=== PATIENT | female | born 1990 | race Caucasian/White ===

== ENCOUNTER 2020-12-31 01:54 | Emergency (ER) | payer OTHER ==
[~2020-12-31] VITALS: Ht 170.2 cm; Wt 90.0 kg
[2020-12-31] MEDS ORDERED: HYDR25TA PO (02:01)
[2020-12-31] MEDS ORDERED: PROMETHAZINE INJ 25 MG/ML VIAL (J2550) IV ONE (02:30)
[2020-12-31] MEDS ORDERED: GI COCKTAIL 50ML BTL(HYOSCYAMINE/MAALOX/LIDOCAINE VISCOUS)(1:3:1) PO ONE (02:30)
[2020-12-31] MEDS ORDERED: NS 1,000 ML IV ONE (02:30)
[2020-12-31 03:56] LABS: HEMOGLOBIN 13.4 g/dl (12.0-15.5); MEAN CORPUSCULAR HEMOGLOBIN 28.1 pg (27.0-33.0); MEAN CORPUSCULAR HGB CONC 32.7 g/dl (32.0-36.5); PLATELET COUNT, AUTOMATED 371 10^3/uL (150-450); RED BLOOD COUNT 4.77 10^6/uL (4.00-5.40); WHITE BLOOD COUNT 12.4 10^3/uL (4.0-10.0)
[2020-12-31 04:20] LABS: ALT/SGPT 36 U/L (12-78); BILIRUBIN,TOTAL 0.3 MG/DL (0.2-1.0); BLOOD UREA NITROGEN 9 MG/DL (7-18); CARBON DIOXIDE LEVEL 28 MEQ/L (21-32); CHLORIDE LEVEL 109 MEQ/L (98-107); CREATININE FOR GFR 0.69 MG/DL (0.55-1.30); GLOMERULAR FILTRATION RATE > 60.0 (>60); GLUCOSE, FASTING 108 MG/DL (70-100); LIPASE 146 U/L (73-393); POTASSIUM SERUM 4.5 MEQ/L (3.5-5.1); SODIUM LEVEL 140 MEQ/L (136-145); TOTAL PROTEIN 7.6 GM/DL (6.4-8.2)
[2020-12-31] MEDS ORDERED: PROM25TA12 PO (06:23)
[2020-12-31 06:30] VITALS: BP 108/64
== END 2020-12-31 06:30 | disposition home or self-care (01) ==
LOC: M ED 01:54
DX: R11.2 Nausea with vomiting, unspecified (principal); R19.7 Diarrhea, unspecified; K21.9 Gastro-esophageal reflux disease without esophagitis; E28.2 Polycystic ovarian syndrome; Z91.89 Other specified personal risk factors, not elsewhere classified; Z88.1 Allergy status to other antibiotic agents; Z88.8 Allergy status to other drugs, medicaments and biological substances

== ENCOUNTER → 2021-01-12 | Outpatient (CLI) | payer OTHER ==
[~2021-01-12] MED LIST: HYDR25TA PO; PROM25TA12 PO
--- NOTE | 2021-01-12 08:49 | REP ---
INDICATION: NASAL POLYPOSIS, CHRISTEL OROANTRAL FISTULA. COMPARISON: None. TECHNIQUE: Axial CT images with multiplanar reformations. FINDINGS: The left maxillary sinus is near fully obscured. The left maxillary sinus appears somewhat expanded however no definite bony erosion. Soft tissue extends through the maxillary antrum and into the area of the left middle turbinate, which appears displaced. Nasal septum is midline, no significant nasal spur. A small amount of lobulated mucosal thickening is seen at the floor of the right maxillary sinus. 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 There is a calcific density within the soft tissue at the floor of the left maxillary sinus may be a residual tooth fragment. Ostiomeatal unit are is partially obscured on the left and is patent on the right. The frontal sinuses are clear. IMPRESSION: Near complete obscuration of the left maxillary sinus which appears expanded. Bilateral oral-antral fistula., with the calcific density above the fistula at the floor of the left maxillary sinus may represent a residual tooth fragment. <Electronically signed by Michael Silverio > 01/12/21 0892
== END ==
LOC: M RAD 08:00
PROVIDERS: ATTEND Otolaryngology
DX: J33.9 Nasal polyp, unspecified (principal); J32.0 Chronic maxillary sinusitis

== ENCOUNTER → 2021-09-20 | Outpatient (CLI) | payer OTHER ==
[2021-09-20 15:23] LABS: ESTRADIOL 120.2 PG/ML; PROGESTERONE 38.3 NG/ML
== END ==
LOC: M LAB 14:10
PROVIDERS: ATTEND Obstetrics & Gynecology Reproductive Endocrinology
DX: Z31.49 Encounter for other procreative investigation and testing (principal)

== ENCOUNTER → 2021-09-26 | Outpatient (CLI) | payer OTHER ==
[2021-09-26 10:10] LABS: PROGESTERONE 35.64 NG/ML
== END ==
LOC: M LAB 07:12
PROVIDERS: ATTEND Obstetrics & Gynecology Reproductive Endocrinology
DX: Z32.00 Encounter for pregnancy test, result unknown (principal)

== ENCOUNTER → 2023-01-27 | Outpatient (CLI) | payer OTHER | LOC: M PLAIMG 07:39 | PROVIDERS: ATTEND Otolaryngology | DX: M27.8 Other specified diseases of jaws (principal); J32.8 Other chronic sinusitis ==